=== PATIENT | female | born 1970 | race Caucasian/White ===

== ENCOUNTER → 2017-04-22 | Outpatient (CLI) | payer OTHER ==
--- NOTE | 2017-04-22 09:55 | RAD ---
Examination: Ultrasound abdomen complete History: History of right upper quadrant pain Comparison: None available Findings: No evidence of gallstones identified in the gallbladder. The visualized pancreas, grossly appears unremarkable. The visualized aorta, IVC are patent. The right kidney measures 11.5 x 4.9 x 4.5 cm. The left kidney is not identified likely prior surgical removal. The liver measures 14.2 cm. The common bile duct measures 2.5 mm in transverse dimension. The spleen measures 9.2 cm in length. Impression: 1. Unremarkable visualized exam. 2. The left kidney is not identified likely prior surgical changes.
== END | disposition home or self-care (01) ==
LOC: US 07:56
PROVIDERS: ATTEND Nurse Practitioner Family
DX: R10.11 Right upper quadrant pain (principal)
CPT/HCPCS: 76700